=== PATIENT | female | born 1955 | race Caucasian/White ===

== ENCOUNTER → 2016-11-08 | Outpatient (CLI) | payer OTHER, MEDICAID ==
[~2016-11-08] MED LIST: ACETAMINOPHEN/H1 TA6 PO; CELEXA20 MG PO; CIPRO500 MG PO; COLACE100 MG PO; DEPAKOTE ER500 MG PO; FERROUS SULFAT325 M2 PO; GOOD SENSE ASP325 MG PO; KEPPRA500 MG PO; LAC PO; MOBIC15 MG PO; NASONEX0.05 MG/Ac; PROAIR HFA0.09 MG/A1 INH; RANITIDINE HCL150 M1 PO; RISPERDAL0.5 MG PO; SODIUM BICARBO650 MG PO; SYNTHROID0.088 MG PO; TEGRETOL100 MG PO; THERA-M1 TA1 PO; TYLENOL EXTRA500 M2 PO; VITAMIN C500 M4 PO; ZOCOR20 MG PO
== END | disposition home or self-care (01) ==
LOC: RD 16:54
DX: M79.662 Pain in left lower leg (principal)

== ENCOUNTER → 2017-08-11 | Outpatient (CLI) | payer OTHER, MEDICAID | END | disposition home or self-care (01) | LOC: RD 10:13 | DX: S82.402D Unspecified fracture of shaft of left fibula, subsequent encounter for closed fracture with routine healing (principal); X58.XXXD Exposure to other specified factors, subsequent encounter ==